=== PATIENT | female | born 1955 | race Caucasian/White ===

== ENCOUNTER 2020-05-20 14:02 | Emergency (ER) | payer BC, MEDICARE ==
[~2020-05-20] VITALS: Ht 157.5 cm; Wt 54.4 kg
[2020-05-20 14:17] VITALS: BP 122/80
[2020-05-20] MEDS ORDERED: ANTI-ITCH28 G1 TP (14:31)
[2020-05-20] MEDS ORDERED: BACITRACIN ZIN1 EACH TOPIC (14:31)
[2020-05-20 14:41] VITALS: BP 132/75
--- NOTE | 2020-05-20 14:41 | Emergency Room Report ---
History of Present Illness General Chief Complaint: Skin Rash/Abscess Source: Patient Present Illness HPI Patient is a 65-year-old female presents for increased right upper extremity discoloration and itchiness. Reports having possible spider bite. States that she had been in a new apartment which had some brown recluse spiders present. Reports having increased itchiness to the right upper extremity. Denies any other current symptoms. Noticed this area of concern approximately 4 hours ago. Had not noticed any progression or increased pain to the area. Denies any headache or nausea or vomiting currently. Allergies: Uncoded Allergies: GELETIN (Allergy, Unknown, 05/20/20) COVID-19 Screening Contact w/high risk pt: No Experienced COVID-19 symptoms?: No COVID-19 Testing performed FRUIT DUMPER: No Patient History Past Medical History: see triage record Last Menstrual Period: na Reviewed Nursing Documentation: PMH: Agreed; PSxH: Agreed Nursing Documentation-PMH Past Medical History: No Stated History Review of Systems All Other Systems: negative except mentioned in HPI Physical Exam Vital Signs Date Time Temp Pulse Resp B/P (MAP) Pulse Ox O2 Delivery O2 Flow Rate FiO2 05/20/20 14:10 98.4 76 18 122/80 (94) 98 Room Air Sp02 EP Interpretation: reviewed, normal General Appearance: normal inspection, well appearing, no apparent distress, alert, GCS 15 Head: atraumatic ENT: normal ENT inspection, hearing grossly normal, normal voice Neck: normal inspection, full range of motion, supple, no bony tend Respiratory: normal inspection, lungs clear, normal breath sounds, no respiratory distress, no retraction, no wheezing Cardiovascular #1: regular rate, rhythm Gastrointestinal: normal inspection, normal bowel sounds, non tender, soft, no guarding, no hernia Genitourinary: no CVA tenderness Musculoskeletal: normal inspection, back normal, normal range of motion Neurologic: alert, motor strength/tone normal, [employer] dynamics ax consultant III-XII nml as tested, oriented x3, responsive, speech normal, normal inspection Psychiatric: normal inspection, judgement/insight normal, mood/affect normal Skin: other - Bruising to the dorsum of the right forearm approximately 1 cm in diameter, no erythema, small insect bite nearby Medical Decision Making Diagnostic Impression: Primary Impression: Insect bite ER Course Patient presented what appears to be an insect bite. Differential diagnosis include was not limited to mosquito bite, bruise, brown recluse bite, among others. Patient has a benign exam and does not appear to require any imaging or laboratory testing at this time. Patient's area of concern appears to be a bruise from local trauma. Does not appear to be any evidence of spider bite at this time. Patient was given topical medication prescription and advised to follow-up . Patient was advised to have the wound rechecked with surgeon if there is any discoloration or signs of worsening injury. Patient is advised to return if any worsening condition or if any changes in status that are concerning. This report is dictated with [employer] credit control administrator software which may occasi onally lead to discrepancies related to use of this software. Last Vital Signs Date Time Temp Pulse Resp B/P (MAP) Pulse Ox O2 Delivery O2 Flow Rate FiO2 05/20/20 14:17 98.4 18 122/80 98 Room Air 05/20/20 14:10 76 Status: improved Disposition: HOME, SELF-CARE Condition: Stable Scripts Hydrocortisone 2% Cream (ANTI-ITCH 2% CREAM) Y Cr 28 GM TP TWICE A DAY, #28 GM Prov: Kwesi Chong MD 05/20/20 Bacitracin Zinc* (BACITRACIN ZINC*) 1 Each Packet 1 APPLIC TOPIC THREE TIMES A DAY, #30 PACKET Prov: Kwesi Chong MD 05/20/20 Referrals: Moiz Peterson MD Patient Instructions: Insect Bite Additional Instructions: Follow up for wound recheck in 1-2 days. Return if worse. Kwesi Chong MD May 20, 2020 14:41
[2020-05-20] MEDS ORDERED: Bacitracin Oint UD TOPIC ONE (14:45)
== END 2020-05-20 14:45 | disposition home or self-care (01) ==
LOC: EMR 14:36
DX: S50.861A Insect bite (nonvenomous) of right forearm, initial encounter (principal); W57.XXXA Bitten or stung by nonvenomous insect and other nonvenomous arthropods, initial encounter; Y93.9 Activity, unspecified; Y92.9 Unspecified place or not applicable; Z91.018 Allergy to other foods
CPT/HCPCS: 99282